=== PATIENT | female | born 1975 | race Caucasian/White ===

== ENCOUNTER 2022-04-17 15:48 | Outpatient (CLI) | payer BC, SELFPAY ==
[2022-04-17 22:01] LABS: TSH With Reflex to FT4* 0.611 uIU/mL (0.270-4.200)
[2022-04-20 02:34] LABS: Vitamin D, 1,25-Dihydroxy 49.5 pg/mL (19.9-79.3)
== END 2022-04-17 15:49 | disposition home or self-care (01) ==
PROVIDERS: PCP Family Medicine; Visit Provider Registered Nurse
DX: R53.83 Other fatigue (principal); R23.2 Flushing; N95.1 Menopausal and female climacteric states
CPT/HCPCS: 82652; 84443

== ENCOUNTER 2022-04-28 08:39 | Outpatient (CLI) | payer BC, SELFPAY ==
[2022-05-01 23:12] LABS: HIV Serologic Interpretation HIV Abs Neg; HIV-1 Antibody Negative (Negative); HIV-2 Antibody Negative (Negative)
[2022-05-02 15:20] LABS: HIV-1 Qnt NAAT copies/mL Not Detected log cpy/mL
== END 2022-04-28 08:40 | disposition home or self-care (01) ==
LOC: NFLDREF 08:40
PROVIDERS: PCP Family Medicine; Visit Provider Registered Nurse
DX: D69.6 Thrombocytopenia, unspecified (principal)
CPT/HCPCS: 86701; 87522

== ENCOUNTER 2022-05-14 09:49 | Emergency (ER) | payer BC, SELFPAY ==
[2022-05-14 10:09] VITALS: BP 170/103; PULSE 87; RESP 20; TEMP 36; O2SAT 96; BMI 34.0
--- NOTE | 2022-05-14 10:50 | ED.GENADULT ---
HPI - General Adult General Time Seen by Provider: 10:50 Date Seen: 05/14/22 Chief complaint: High Blood Pressure Stated complaint: High blood pressure Time Seen by Provider: 05/14/22 10:22 Source: patient Mode of arrival: ambulatory Limitations: no limitations History of Present Illness HPI narrative: Patient is a pleasant 47 white female with as Crohn's disease, she has transition to see Dr. Brooks in [place], she has been told by last several Professional she has seen that she has elevated blood pressure. She has checked her blood pressure home gets in the 170 systolic range. She has not changed her diet or activity level she is on no med new medications. The patient denies chest pain breathing problem abdominal pain. She is not on medicine for Crohn's currently. She has not been treated for hypertension in the past. Related Data Home Medications Medication Instructions Recorded Confirmed L.acidoph, paracasei,B. lactis 10 cell PO .QD 04/17/22 04/17/22 billion cell capsule (Digestive Advantage Advanced Probiotic) ondansetron 4 mg disintegrating 4 mg PO Q6H 04/17/22 04/17/22 tablet Previous Rx's Medication Instructions Recorded estradiol 0.1 mg/24 hr semiweekly 1 patch transdermal 2XW #8 ea 04/17/22 transdermal patch hydrochlorothiazide 25 mg tablet 25 mg PO DAILY #30 tabs 05/14/22 Allergies Allergy/AdvReac Type Severity Reaction Status Date / Time azithromycin Allergy Intermediate hives Verified 04/17/22 14:26 ciprofloxacin [From Cipro] Allergy Intermediate Hives Verified 04/17/22 14:26 hydromorphone [From Dilaudid] Allergy Intermediate Vomiting Verified 04/17/22 14:26 morphine Allergy Intermediate Vomiting Verified 04/17/22 14:26 penicillin V Allergy Intermediate Rash Verified 04/25/22 15:18 Penicillins Allergy Intermediate hives Verified 04/17/22 14:26 Quinolones Allergy Intermediate Hives Verified 04/25/22 15:18 Review of Systems Status of ROS: Reports: 6 or more systems reviewed and unremarkable except as noted in History and below [facility] Medical History Cyst of ovary Diabetes, gestational (02/27/09) Diverticulitis (02/27/09) Diverticulitis of large intestine Dysmenorrhea Ectopic (02/27/09) Epigastric pain Menorrhagia with regular cycle Postoperative intra-abdominal abscess Vasomotor symptoms due to menopause Surgical History History of appendectomy History of colonoscopy (2017) History of colostomy (02/28/11) History of laparoscopic cholecystectomy (2015) History of partial surgical removal of colon (2010) History of tonsillectomy (1975) Status post hysterectomy with oophorectomy (2017) Status post left breast biopsy Family History Mother Ischemic heart disease, Onset Age: 55 Cerebellar ataxia Depression Anxiety Diabetes Paternal Grandmother Breast cancer, Onset Age: 55 Father Prostate cancer No family history of colorectal cancer Social History Narrative: 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 , clinical business analyst, 1 son Non-smoker- quit 2002, 20 pack years Social drinker- 5/week Smoking Status: Former smoker How often do you have a drink containing alcohol: 4 or more times a week AUDIT-C Alcohol total score: 4 Non-prescribed substance use: denies use Exam Narrative: Exam Narrative: Objective: Blood pressure 170/103 In general patient is alert or x3, no distress Lungs are clear Heart rhythm regular without murmur Extremities are no edema Neurologic nonfocal Const: Vital Signs, click to edit/add: Vital Signs - 24 hr 05/14/22 10:09 Temperature 96.8 F L Pulse Rate [Pulse Oximeter] 87 Respiratory Rate 20 Blood Pressure [Le ft Upper Arm] 170/103 H Pulse Oximetry 96 Oxygen Delivery Me thod Room Air Course Vital Signs Vital signs: Initial Vital Signs Temperature 96.8 F L 05/14/22 10:09 Temperature Source Temporal Artery Scan 05/14/22 10:09 Pulse Rate 87 05/14/22 10:09 Respiratory Rate 20 05/14/22 10:09 Blood Pressure 170/103 H 05/14/22 10:09 Blood Pressure Mean 125 05/14/22 10:09 Blood Pressure Position Supine 05/14/22 10:09 Pulse Oximetry 96 05/14/22 10:09 Oxygen Delivery Method 05/14/22 10:09 Vital Signs Temperature 96.8 F L 05/14/22 10:09 Pulse Rate 87 05/14/22 10:09 Respiratory Rate 20 05/14/22 10:09 Blood Pressure 170/103 H 05/14/22 10:09 Pulse Oximetry 96 05/14/22 10:09 Oxygen Delivery Method 05/14/22 10:09 Temperature 96.8 F L 05/14/22 10:09 Pulse Rate 87 05/14/22 10:09 Respiratory Rate 20 05/14/22 10:09 Blood Pressure 170/103 H 05/14/22 10:09 Pulse Oximetry 96 05/14/22 10:09 Oxygen Delivery Method 05/14/22 10:09 Medical Decision Making MDM Narrative Medical decision making narrative: Patient has had persistently elevated blood pressure, over the last year she believes especially with visiting medical people and getting blood pressures checked. She was told by nursing staff to promptly come to the ER as she will they were concerned about her blood pressure level. She has not been on any blood pressure medication. Again be reasonable check a heme 4 and a panel 7 and start hydrochlorothiazide 25 mg daily, continue to monitor twice a day blood pressures and recheck with Dr. Freeman within the next week. Discharge Plan Discharge Clinical Impression: Hypertension Patient Disposition: Home, Self-Care Condition: Stable Additional Instructions: Recheck with Dr. Freeman within the next several days with blood pressure measurements, start hydrochlorothiazide 25 mg daily, blood studies will be ordered, return as needed Activity Level: No Restrictions Diet Detail: lower sodium in diet Prescriptions: New hydrochlorothiazide 25 mg tablet 25 mg PO DAILY Qty: 30 2RF No Action ondansetron 4 mg tablet,disintegrating 4 mg PO Q6H Digestive Advantage Advanced 10 billion cell capsule PO .QD estradiol 0.1 mg/24 hr patch semiweekly 1 patch transdermal 2XW Qty: 8 2RF Rx Instructions: apply 1 patch for 3 days alternating with 1 patch for 4 days each week for 3 wks per 4-wk cycle Follow Up/Referrals: Adair Kirk MD [Primary Care Provider] - Stand Alone Forms: [employer] Info Instructions
[2022-05-14 11:10] LABS: Basophils Absolute Auto 0.05 K/uL (0.00-0.30); Basophils Percent Auto 0.9 % (0.0-3.0); Eosinophils Absolute Auto 0.07 K/uL (0.00-0.50); Eosinophils Percent Auto 1.2 % (0.0-7.0); Hematocrit 45.4 % (33.0-51.0); Hemoglobin* 15.1 gm/dL (12.0-16.0); Immature Granulocytes Abs Auto 0.01 K/uL (0.00-0.30); Lymphocytes Absolute Auto 1.37 K/uL (0.90-2.90); Lymphocytes Percent Auto 24.2 % (20-44); Mean Corpuscular HGB Conc 33 gm/dL (32-36); Mean Corpuscular Hemoglobin 30 pg (26-34); Mean Corpuscular Volume 89 fL (80-100); Monocytes Percent Auto 7.9 % (0.0-11.0); Neutrophils Absolute Auto 3.72 K/uL (1.7-7.0); Neutrophils Percent Auto 65.6 % (42.0-72.0); Platelet Count* 283 K/uL (140-440); RDW Coefficient of Variation % 13.5 % (11.5-15.5); Red Blood Count 5.08 m/uL (4.00-5.20); White Blood Count* 5.67 K/uL (4.50-11.00)
[2022-05-14 11:15] LABS: Slide Review Reflex No
[2022-05-14 11:22] LABS: Chloride* 106 mmol/L (96-114)
[2022-05-14 11:23] LABS: Potassium* 4.2 mmol/L (3.6-5.1); Sodium* 140 mmol/L (135-149)
[2022-05-14 11:26] LABS: Blood Urea Nitrogen* 11 mg/dL (5-24); Calcium* 8.9 mg/dL (8.4-10.6); Carbon Dioxide* 27 mmol/L (20-32); Glucose* 123 mg/dL (60-115)
[2022-05-14 11:49] LABS: Creatinine* 0.8 mg/dL (0.5-1.5); Est. Creatinine Clearance* 89.88; Estimated Glomerular Filt Rate 91 ml/min
== END 2022-05-14 11:13 | disposition home or self-care (01) ==
PROVIDERS: Emergency Provider Family Medicine; PCP Family Medicine
DX: I10 Essential (primary) hypertension (principal)
CPT/HCPCS: 36415; 80048; 85025; 99283

== ENCOUNTER 2022-10-21 18:26 | Outpatient (CLI) | payer BC, SELFPAY ==
--- NOTE | 2022-10-21 19:00 | CRLHL7_ITS ---
For Patients: As a result of the Century Cures Act, medical imaging exams and procedure reports are released immediately into your electronic medical record. You may view this report before your referring provider. If you have questions, please contact your health care provider. BILATERAL SCREENING MAMMOGRAM WITH COMPUTER-AIDED DETECTION AND TOMOSYNTHESIS TECHNIQUE: CC and MLO views were obtained. These mammographic images have been obtained using full-field digital technique. These mammographic images were interpreted with the benefit of computer-aided detection. Breast Tomosynthesis was used in this interpretation. COMPARISON FILM: 09/06/21, 04/06/18, 02/01/16. FINDINGS: The breasts are heterogeneously dense, which may obscure small masses IMPRESSION: There is no radiographic evidence for malignancy. ASSESSMENT: BI-RADS Category 1: Negative RECOMMENDATION: Routine screening mammogram in 1 year. A lay language report of this examination will be provided to the patient. Shmuel Baez M.D. Diagnostic Radiologist [email or web address] [place]/Dictated by: Shmuel Baez MD @ 10/22/2022 10:51:00 AM (Electronically Signed)
== END 2022-10-21 18:27 | disposition home or self-care (01) ==
PROVIDERS: PCP Family Medicine; Visit Provider Family Medicine
DX: Z12.31 Encounter for screening mammogram for malignant neoplasm of breast (principal); R92.2 Inconclusive mammogram
CPT/HCPCS: 77063; 77067

== ENCOUNTER 2023-08-03 09:29 | Outpatient (CLI) | payer BC, SELFPAY ==
[2023-08-03 14:28] LABS: Cholesterol* 187 mg/dL (90-199); Triglycerides* 135 mg/dL (40-149)
[2023-08-03 14:29] LABS: HDL Cholesterol* 49 mg/dL (>=50); LDL Cholesterol Calculated 111 mg/dL (<100)
== END 2023-08-03 09:30 | disposition home or self-care (01) ==
PROVIDERS: PCP Family Medicine; Visit Provider Family Medicine
DX: I10 Essential (primary) hypertension (principal); E55.9 Vitamin D deficiency, unspecified; E66.9 Obesity, unspecified; Z13.6 Encounter for screening for cardiovascular disorders
CPT/HCPCS: 80048; 80061; 84439

== ENCOUNTER 2023-08-11 07:56 | Outpatient (CLI) | payer BC, SELFPAY ==
[2023-08-11 10:04] VITALS: BP 140/90; PULSE 106; RESP 18
--- NOTE | 2023-08-11 11:16 | W.PM.STED ---
Stress Test Note Date Date of test: 08/11/23 Providers Referring provider: Adair Kirk Primary care provider: Adair Kirk Stress test physician: [place] Williamson Stress Test Note Stress test ordered: Stress Myoview Indication for test: Hypertension, shortness of breath, chest pain Results discussion: Patient is a very nice lady who presents for the above test . Cardiac stress test medical history form is reviewed entirely. , after discussion the risks benefits and side effects he would like to proceed pretest EKG shows normal sinus rhythm. Rhythm appears to be sinus, rate appears to be 78, blood pressure 160 and 88, there is some diffuse ST wave changes noted inferior laterally. With T-wave inversion from V3 to V6, and 2 3 and AVF, this is on the baseline. Standard Sukhdev protocol is employed over a time course of 6 minutes. Test is terminated because of fatigue, and leg discomfort, she did not have any anginal equivalent symptoms. Persistence of the baseline abnormalities is noted. Conditioning was felt to be moderate Impression: Negative electrographic portion of stress Myoview Follow up suggested: Await nuclear images clinical correlation with these will be needed, they will be read by Cardiology and nuclear Medicine. Patient left this testing facility back to baseline in good condition
== END 2023-08-11 11:52 | disposition home or self-care (01) ==
LOC: STRESS 07:57
PROVIDERS: PCP Family Medicine; Visit Provider Family Medicine
DX: I10 Essential (primary) hypertension (principal); R94.31 Abnormal electrocardiogram [ECG] [EKG]; R07.89 Other chest pain
CPT/HCPCS: 78452; 93016; 93017; A9500

== ENCOUNTER 2024-03-11 10:55 | Outpatient (CLI) | payer BC, SELFPAY | END 2024-03-11 10:56 | disposition home or self-care (01) | LOC: LKVREF 10:56 | PROVIDERS: PCP Family Medicine; Visit Provider Family Medicine | DX: R10.9 Unspecified abdominal pain (principal) | CPT/HCPCS: 80048 ==

== ENCOUNTER 2024-09-20 11:01 | Outpatient (CLI) | payer BC, SELFPAY | END 2024-09-20 11:02 | disposition home or self-care (01) | PROVIDERS: PCP Family Medicine; Visit Provider Family Medicine | DX: R10.84 Generalized abdominal pain (principal); I10 Essential (primary) hypertension; R20.2 Paresthesia of skin; Z13.220 Encounter for screening for lipoid disorders | CPT/HCPCS: 80053; 80061; 86038 ==

== ENCOUNTER 2024-12-13 16:47 | Outpatient (CLI) | payer BC, SELFPAY ==
--- NOTE | 2024-12-13 17:20 | CRLHL7_ITS ---
For Patients: As a result of the Century Cures Act, medical imaging exams and procedure reports are released immediately into your electronic medical record. You may view this report before your referring provider. If you have questions, please contact your health care provider. BILATERAL SCREENING MAMMOGRAM WITH COMPUTER-AIDED DETECTION AND TOMOSYNTHESIS TECHNIQUE: CC and MLO views were obtained. These mammographic images have been obtained using full-field digital technique. These mammographic images were interpreted with the benefit of computer-aided detection. Breast Tomosynthesis was used in this interpretation. COMPARISON FILM: 10/21/22, 09/06/21, 04/06/18. FINDINGS: There are scattered areas of fibroglandular density. IMPRESSION: There is no radiographic evidence for malignancy. ASSESSMENT: BI-RADS Category 2: Benign RECOMMENDATION: Routine screening mammogram in 1 year. A lay language report of this examination will be provided to the patient. Shmuel Baez M.D. Diagnostic Radiologist [email or web address] SP/Dictated by: Shmuel Baez MD @ 12/14/2024 9:14:00 AM (Electronically Signed)
== END 2024-12-13 16:48 | disposition home or self-care (01) ==
LOC: MAMMO 16:48
PROVIDERS: PCP Family Medicine; Visit Provider Family Medicine
DX: Z12.31 Encounter for screening mammogram for malignant neoplasm of breast (principal)
CPT/HCPCS: 77063; 77067